=== PATIENT | female | born 1985 | race American Indian/Alaskan Native ===

== ENCOUNTER → 2017-09-22 | Outpatient (CLI) | payer OTHER ==
[~2017-09-22] MED LIST: Bactrim Ds Tab1 EACH PO; HYDR1TAB94 PO; KETO30I IM; NITR100 PO; ONDA4ODT PO; Pepcid20 MG PO; Pyridium200 MG PO; Zofran Odt4 MG SL
[2017-09-22 18:24] LABS: Bilirubin, Urine Neg (Neg); Blood, Urine Neg (Neg); Glucose Qualitative, Urine Neg (Neg); Ketones, Urine 1+ (Neg); Leukocyte Esterase, Urine 1+ (Neg); Nitrite, Urine Neg (Neg); Protein, Urine Neg (Neg); Urobilinogen, Urine NORM (Normal)
[2017-09-22 18:35] LABS: Appearance, Urine Clear (Clear); Color, Urine Pale Yellow (P-Yellow)
[2017-09-22 18:36] LABS: Amorphous Heavy (0-Heavy); Bacteria Few /hpf; Red Blood Cells, Urine Not Seen /hpf (0-2); Squamous Epithelial Cells Not Seen /hpf (Few); White Blood Cells, Urine Not Seen /hpf (0-5)
== END ==
LOC: LAB 16:45 → LAB SHORT 16:45
PROVIDERS: Nurse Practitioner Family
DX: N39.0 Urinary tract infection, site not specified (principal)
CPT/HCPCS: 81001; 87086

== ENCOUNTER 2017-11-30 16:42 | Emergency (ER) | payer OTHER ==
[~2017-11-30] VITALS: Ht 162.6 cm; Wt 83.5 kg
[2017-11-30] MEDS ORDERED: Keflex500 MG PO (17:53)
[2017-11-30] MEDS ORDERED: FLUC150A PO (17:53)
== END 2017-11-30 17:58 | disposition home or self-care (01) ==
LOC: ER 16:42
DX: T63.441A Toxic effect of venom of bees, accidental (unintentional), initial encounter (principal); Z88.0 Allergy status to penicillin; Z88.1 Allergy status to other antibiotic agents; Z87.891 Personal history of nicotine dependence
CPT/HCPCS: 99282

== ENCOUNTER → 2018-06-12 | Outpatient (CLI) | payer OTHER ==
[~2018-06-12] MED LIST changes: +Cheratussin AC118 ML PO; +FLUC150A PO; +Keflex500 MG PO
[2018-06-13 10:20] LABS: Candida species (DNA Probe) Negative (NEGATIVE); G. vaginalis (DNA Probe) Negative (NEGATIVE); T. vaginalis (DNA Probe) Negative (NEGATIVE)
[2018-06-28 15:00] LABS: CHLAMYDIA BY NAA Negative (Negative); GONOCOCCUS BY NAA Negative (Negative); HPV 16 Negative (Negative); HPV 18 Negative (Negative); HPV OTHER HR TYPES Negative (Negative); TRICH VAG BY NAA Negative (Negative)
== END | disposition home or self-care (01) ==
LOC: LAB SHORT 14:25 → LAB 14:25
PROVIDERS: Advanced Practice Midwife
DX: Z01.419 Encounter for gynecological examination (general) (routine) without abnormal findings (principal); N76.0 Acute vaginitis
CPT/HCPCS: 87480; 87491; 87510; 87591; 87624; 87660; 87661; G0123

== ENCOUNTER → 2018-07-03 | Outpatient (CLI) | payer OTHER ==
[2018-07-03 14:41] LABS: Candida species (DNA Probe) Positive (NEGATIVE); G. vaginalis (DNA Probe) Negative (NEGATIVE); T. vaginalis (DNA Probe) Negative (NEGATIVE)
== END | disposition home or self-care (01) ==
LOC: LAB SHORT 10:18 → LAB 10:18
PROVIDERS: Advanced Practice Midwife
DX: N76.0 Acute vaginitis (principal)
CPT/HCPCS: 87480; 87510; 87660

== ENCOUNTER → 2018-07-24 | Outpatient (CLI) | payer OTHER ==
[~2018-07-24] MED LIST changes: +PROM25 PO
[2018-07-27 12:02] LABS: TEST ORDERED: PAP LB
== END | disposition home or self-care (01) ==
LOC: LAB 16:21 → LAB SHORT 16:21
PROVIDERS: Advanced Practice Midwife
DX: Z01.419 Encounter for gynecological examination (general) (routine) without abnormal findings (principal)
CPT/HCPCS: G0123

== ENCOUNTER → 2018-08-15 | Outpatient (CLI) | payer OTHER | END | disposition home or self-care (01) | LOC: LAB SHORT 15:22 → LAB 15:22 | DX: H60.12 Cellulitis of left external ear (principal) | CPT/HCPCS: 87070; 87205 ==

== ENCOUNTER 2018-11-01 07:42 | Day surgery (SDC) | payer OTHER ==
[~2018-11-01] VITALS: Wt 77.6 kg
[~2018-11-01 07:42] MED LIST changes: +PANT20 PO
--- NOTE | 2018-11-01 08:42 | NUR ---
11/01/18 0842 Nino Pickard PATIENT DETERMINED TO BE ASA APPROPRIATE FOR PROPOFOL SEDATION PRIOR TO START OF PROCEDURE BY . 3-LEAD EKG REVIEWED WITH PHYSICIAN PRIOR TO START OF PROCEDURE.PATIENT CONFIRMS NPO STATUS AND AGREES WITH SCHEDULED PROCEDURE.History, Chart, Medications and Allergies reviewed before start of procedure.MONITOR INTACT WITH CONTINUOUS PULSE OXIMETRY AND INTERMITTENT BP.O2 VIA N/C INTACT THROUGHOUT SEDATION/PROCEDURE.HURRICAINE SPRAY TO OROPHARYX.Bite Block Placed
--- NOTE | 2018-11-01 09:53 | NUR ---
Patient up to Ambulate independently. Gait steady. Discharge instructions reviewed with patient. Patient verbalizes understanding. Copy given to patient to take home. Patient States Post-Procedure ride home has been arranged. Discharged via wheelchair to private car for ride home. S.O. PROVIDED TRANSPORTATION. PT TO KEEP APPOINTMENT.
== END 2018-11-01 09:53 | disposition home or self-care (01) ==
LOC: ORSCMMR 07:42 → ORD 08:30 → ORSCMMR 08:30
PROVIDERS: Internal Medicine Gastroenterology
PROC: 0DB68ZX Excision of Stomach, Via Natural or Artificial Opening Endoscopic, Diagnostic (ICD-10-PCS; principal; 2018-11-01 08:30)
PROC: 0DB58ZX Excision of Esophagus, Via Natural or Artificial Opening Endoscopic, Diagnostic (ICD-10-PCS; principal; 2018-11-01 08:30)
PROC: 0DB98ZX Excision of Duodenum, Via Natural or Artificial Opening Endoscopic, Diagnostic (ICD-10-PCS; principal; 2018-11-01 08:30)
DX: R10.13 Epigastric pain (principal); K21.9 Gastro-esophageal reflux disease without esophagitis; Z79.899 Other long term (current) drug therapy; F17.210 Nicotine dependence, cigarettes, uncomplicated
CPT/HCPCS: 88305; 88342; J2704; J7120

== ENCOUNTER 2019-05-29 06:05 | Emergency (ER) | payer OTHER ==
[~2019-05-29] VITALS: Ht 162.6 cm; Wt 74.8 kg
[2019-05-29 07:27] LABS: Influenza A Negative (NEGATIVE); Influenza B Positive (NEGATIVE)
== END 2019-05-29 07:55 | disposition home or self-care (01) ==
LOC: ER 06:05
PROVIDERS: Emergency Medicine
DX: J10.1 Influenza due to other identified influenza virus with other respiratory manifestations (principal); Z87.891 Personal history of nicotine dependence
CPT/HCPCS: 87081; 87430; 87804; 99283

== ENCOUNTER → 2019-08-28 | Outpatient (CLI) | payer OTHER ==
[2019-08-29 09:01] LABS: Candida species (DNA Probe) Negative (NEGATIVE); G. vaginalis (DNA Probe) Positive (NEGATIVE); T. vaginalis (DNA Probe) Negative (NEGATIVE)
[2019-08-31 00:08] LABS: CHLAMYDIA TRACHOMATIS, NAA Negative (Negative); HPV 16 Negative (Negative); HPV 18 Negative (Negative); HPV OTHER HR TYPES Negative (Negative); NEISSERIA GONORRHOEAE, NAA Negative (Negative)
== END | disposition home or self-care (01) ==
LOC: LAB 10:06 → LAB SHORT 10:06
PROVIDERS: Obstetrics & Gynecology
DX: Z01.419 Encounter for gynecological examination (general) (routine) without abnormal findings (principal); N76.0 Acute vaginitis
CPT/HCPCS: 87480; 87491; 87510; 87591; 87624; 87660; G0123

== ENCOUNTER → 2019-09-19 | Outpatient (CLI) | payer OTHER ==
[2019-09-20 10:50] LABS: Candida species (DNA Probe) Negative (NEGATIVE); G. vaginalis (DNA Probe) Negative (NEGATIVE); T. vaginalis (DNA Probe) Negative (NEGATIVE)
== END | disposition home or self-care (01) ==
LOC: LAB SHORT 10:17 → LAB 10:17
PROVIDERS: Obstetrics & Gynecology
DX: N89.8 Other specified noninflammatory disorders of vagina (principal)
CPT/HCPCS: 87480; 87510; 87660

== ENCOUNTER 2020-02-03 21:42 | Emergency (ER) | payer OTHER ==
[~2020-02-03] VITALS: Ht 162.6 cm; Wt 77.1 kg
[2020-02-03] MEDS ORDERED: CYCL10 PO (22:15)
== END 2020-02-03 23:00 | disposition home or self-care (01) ==
LOC: ER 21:42
DX: M62.830 Muscle spasm of back (principal); Z88.0 Allergy status to penicillin; Z88.1 Allergy status to other antibiotic agents; Z79.899 Other long term (current) drug therapy; Z87.891 Personal history of nicotine dependence
CPT/HCPCS: 71046; 96372; 99283-25; A9270; A9270-GY; J1885

== ENCOUNTER 2020-04-03 06:06 | Day surgery (SDC) | payer OTHER ==
[~2020-04-03] VITALS: Ht 162.6 cm; Wt 77.0 kg
[~2020-04-03 06:06] MED LIST changes: +CYCL10 PO
== END 2020-04-03 09:45 | disposition home or self-care (01) ==
LOC: ORSCSDS 06:06
PROVIDERS: Podiatrist Foot & Ankle Surgery
PROC: 0LQW0ZZ Repair Left Foot Tendon, Open Approach (ICD-10-PCS; principal; 2020-04-03 07:30)
DX: M66.872 Spontaneous rupture of other tendons, left ankle and foot (principal); M76.72 Peroneal tendinitis, left leg; Z87.891 Personal history of nicotine dependence
CPT/HCPCS: J0171; J1100; J1200; J2250; J2405; J2704; J3010; J3370; J7120

== ENCOUNTER 2020-10-09 18:26 | Emergency (ER) | payer OTHER ==
[~2020-10-09] VITALS: Ht 162.6 cm; Wt 81.2 kg
[2020-10-09] MEDS ORDERED: Voltaren100 GM (19:04)
[2020-10-09] MEDS ORDERED: PRED20 (19:05)
[2020-10-09] MEDS ORDERED: Cyclobenzaprine5 MG PO (19:49)
== END 2020-10-09 20:15 | disposition home or self-care (01) ==
LOC: ER 18:26
DX: M25.512 Pain in left shoulder (principal); Z88.0 Allergy status to penicillin; Z88.1 Allergy status to other antibiotic agents
CPT/HCPCS: 73030; 99283-25

== ENCOUNTER 2022-04-15 10:20 | Emergency (ER) | payer OTHER ==
[~2022-04-15] VITALS: Ht 162.6 cm; Wt 87.1 kg
[~2022-04-15 10:20] MED LIST changes: +Cyclobenzaprine5 MG PO; +PRED20; +Voltaren100 GM
[2022-04-15] MEDS ORDERED: CODEINE-GUAIFE120 M1 PO (11:09)
== END 2022-04-15 11:08 | disposition home or self-care (01) ==
LOC: ER 10:20
DX: Z20.828 Contact with and (suspected) exposure to other viral communicable diseases (principal); Z88.0 Allergy status to penicillin; Z88.8 Allergy status to other drugs, medicaments and biological substances; Z79.899 Other long term (current) drug therapy; Z79.52 Long term (current) use of systemic steroids
CPT/HCPCS: 99283

== ENCOUNTER 2023-03-28 08:48 | Day surgery (SDC) | payer OTHER ==
[~2023-03-28] VITALS: Ht 162.6 cm; Wt 96.0 kg
[~2023-03-28 08:48] MED LIST changes: +CODEINE-GUAIFE120 M1 PO
[2023-03-28] MEDS ORDERED: CARAFATE1 GM (09:12)
[2023-03-28] MEDS ORDERED: OMEP20ER (09:13)
[2023-03-28 10:28] VITALS: BP 105/71
== END 2023-03-28 10:21 | disposition home or self-care (01) ==
LOC: ORSCSDS 08:48
PROVIDERS: Surgery
PROC: 0DB68ZX Excision of Stomach, Via Natural or Artificial Opening Endoscopic, Diagnostic (ICD-10-PCS; principal; 2023-03-28 10:00)
PROC: 0DB58ZX Excision of Esophagus, Via Natural or Artificial Opening Endoscopic, Diagnostic (ICD-10-PCS; principal; 2023-03-28 10:00)
DX: K21.00 Gastro-esophageal reflux disease with esophagitis, without bleeding (principal); R06.02 Shortness of breath; Z87.891 Personal history of nicotine dependence; Z79.899 Other long term (current) drug therapy
CPT/HCPCS: 88305; 88342; J2250; J2704; J7120

== ENCOUNTER → 2023-04-12 | Outpatient (CLI) | payer OTHER ==
[~2023-04-12] MED LIST changes: +CARAFATE1 GM; +OMEP20ER
[2023-04-17 10:07] LABS: HPV 16 Negative (Negative); HPV 18 Negative (Negative); HPV OTHER HR TYPES Negative (Negative)
== END ==
LOC: LAB SHORT 16:00 → LAB 16:00
PROVIDERS: Family Medicine
DX: Z01.419 Encounter for gynecological examination (general) (routine) without abnormal findings (principal)
CPT/HCPCS: 87624; G0145

== ENCOUNTER 2023-11-14 14:36 | Emergency (ER) | payer OTHER ==
[~2023-11-14] VITALS: Ht 162.6 cm; Wt 93.4 kg
[2023-11-14 15:06] VITALS: BP 153/95
[2023-11-14] MEDS ORDERED: Ketorolac Tromethamine 30mg Vial IM ONE (15:25)
[2023-11-14] MEDS ORDERED: Cyclobenzaprine HCl 10 MG Tab PO ONE (15:25)
[2023-11-14] MEDS ORDERED: Lidocaine 4% 1 Patch TOP ONE (15:25)
[2023-11-14] MEDS ORDERED: Acetaminophen 500 MG Tab PO ONE (15:25)
[2023-11-14] MEDS ORDERED: Voltaren100 GM TOP (16:48)
[2023-11-14] MEDS ORDERED: CYCL10 PO (16:48)
[2023-11-14] MEDS ORDERED: LIDO700A20 TOP (16:48)
== END 2023-11-14 16:58 | disposition home or self-care (01) ==
LOC: ER 14:36
DX: M54.50 Low back pain, unspecified (principal); G89.29 Other chronic pain; K21.9 Gastro-esophageal reflux disease without esophagitis; Z88.0 Allergy status to penicillin; Z88.8 Allergy status to other drugs, medicaments and biological substances; Z79.899 Other long term (current) drug therapy
CPT/HCPCS: 72070; 72100; 96372; 99283-25; A9270; J1885

== ENCOUNTER → 2024-06-21 | Outpatient (CLI) | payer SELFPAY ==
[~2024-06-21] MED LIST changes: +LIDO700A20 TOP; +Voltaren100 GM TOP
[2024-06-22 07:31] LABS: Bacterial Vaginosis PCR Negative (NEGATIVE); Candida Group, PCR NOT DETECTED (NOT DETECT); Candida glabrata-krusei, PCR NOT DETECTED (NOT DETECT)
[2024-06-22 07:56] LABS: Chlamydia Trachomatis Vaginal NOT DETECTED (NOT DETECT); Neisseria Gonorrhoea Vaginal NOT DETECTED (NOT DETECT)
[2024-06-24 15:40] LABS: HIV 1,2 COMBO ANTIGEN/ANTIBODY Negative (Negative)
== END | disposition home or self-care (01) ==
LOC: LAB SHORT 16:50 → LAB 16:50
PROVIDERS: Nurse Practitioner Family
DX: Z72.51 High risk heterosexual behavior (principal)
CPT/HCPCS: 81515; 86592; 87389; 87491; 87591

== ENCOUNTER 2025-03-08 20:50 | Observation (INO) | payer SELFPAY ==
[~2025-03-08] VITALS: Ht 162.6 cm; Wt 96.0 kg
[2025-03-08 21:31] LABS: BASOPHILS ABSOLUTE AUTO 0.04 K/mm3 (0.00-0.23); BASOPHILS PERCENT AUTO 1 % (0-2); EOSINOPHILS ABSOLUTE AUTO 0.24 K/mm3 (0.00-0.68); EOSINOPHILS PERCENT AUTO 3 % (0-6); Hematocrit 38.1 % (33.0-51.0); Hemoglobin 12.4 g/dL (11.5-16.0); IMMATURE GRAN ABSOLUTE AUTO 0.01 K/mm3 (0.00-0.10); IMMATURE GRAN PERCENT AUTO 0 % (0-1); LYMPHOCYTES ABSOLUTE AUTO 3.51 K/mm3 (0.84-5.20); LYMPHOCYTES PERCENT AUTO 48 % (21-46); MONOCYTES ABSOLUTE AUTO 0.55 K/mm3 (0.16-1.47); MONOCYTES PERCENT AUTO 8 % (4-13); Mean Corpuscular HGB Conc 32.5 g/dL (31.5-36.5); Mean Corpuscular Volume 84 fL (80-100); NEUTROPHILS ABSOLUTE AUTO 2.92 K/mm3 (1.96-9.15); NEUTROPHILS PERCENT AUTO 40 % (41-73); NRBC ABSOLUTE 0.00 K/mm3 (0.00-0.02); NRBC Auto 0.0 /100 WBC (0.0-0.2); Platelet Count 273 K/mm3 (150-400); RDW Coefficient Variation 12.5 % (11.7-14.2); RDW Standard Deviation 38.0 fL (35.1-46.3)
[2025-03-08 21:51] LABS: Alanine Aminotransfer (ALT/SGP 45.0 U/L (12-78); Albumin, Blood 3.4 g/dL (3.4-5.0); Albumin/Globulin Ratio 0.8 (0.8-1.8); Anion Gap 8.0 mmol/L (3-11); Aspartate Aminotrans (AST/SGOT 18.0 U/L (12-37); Bilirubin, Total 0.2 mg/dL (0.1-1.0); Blood Urea Nitrogen 18.0 mg/dL (8-24); CO2, Blood 25.0 mmol/L (21-32); Calcium, Blood 8.9 mg/dL (8.5-10.1); Chloride, Blood 111.0 mmol/L (98-108); Creatinine, Blood 0.59 mg/dL (0.40-1.00); Globulin, Blood 4.0 g/dL (2.2-4.0); Glucose, Blood 116.0 mg/dL (70-99); Potassium, Blood 3.8 mmol/L (3.5-5.5); Sodium, Blood 140.0 mmol/L (136-145); Total Protein, Blood 7.4 g/dL (6.4-8.2)
[2025-03-09] VITALS (16 sets, daily range): BP systolic 90–109; BP diastolic 56–79
[2025-03-09 01:58] LABS: Source, Urine Clean Catch
[2025-03-09 02:09] LABS: Bilirubin, Urine Neg (Neg); Glucose Qualitative, Urine Neg (Neg); Ketones, Urine Neg (Neg); Leukocyte Esterase, Urine Neg (Neg); Protein, Urine 1+ (Neg); Specific Gravity, Urine 1.010 (1.003-1.022); Urobilinogen, Urine NORM (Normal)
[2025-03-09 02:12] LABS: Color, Urine Yellow (P-Yellow)
[2025-03-09 02:19] LABS: Red Blood Cells, Urine 0-2 /hpf (0-2); White Blood Cells, Urine Not Seen /hpf (0-5)
[2025-03-09] MEDS ORDERED: Ciprofloxacin 400MG/D5 200ML 200 ML IV ONE (07:00)
[2025-03-09] MEDS ORDERED: Ondansetron HCl 2 MG / ML 2ML Vial IV ONE (07:00)
[2025-03-09] MEDS ORDERED: MetroNIDAZOLE 500MG/NS 100 ml 100 ML IV ONE (07:00)
[2025-03-09] MEDS ORDERED: Ondansetron HCl 2 MG / ML 2ML Vial IV PRN ×2 (07:10→14:05)
[2025-03-09] MEDS ORDERED: HYDROmorphone HCl/Pf 1MG SYR IV PRN ×3 (07:10→14:00)
[2025-03-09] MEDS ORDERED: Rocuronium Bromide 10 MG/ML 5ML Injection IV ONE (12:48)
[2025-03-09] MEDS ORDERED: FentaNYL Citrate 50 MCG/ML 2 ML Injection ONE (12:49)
[2025-03-09] MEDS ORDERED: Midazolam HCl 1MG / ML 2ML Vial ONE ×2 (12:49→13:48)
--- NOTE | 2025-03-09 13:47 | NUR ---
PATIENT TO DAYSURGERY AT THIS TIME.
[2025-03-09] MEDS ORDERED: Bupivacaine 0.5% HCl 5 MG/ML 30MLVIAL ONE (13:53)
--- NOTE | 2025-03-09 13:54 | NUR ---
PT INTO PACU VIA L[facility]EN FROM RM 216 FOR PREOP CARE AT 133O. PLEASANT & COOPERATIVE. PT STATES "I'M SO COLD". JEN WARMER PLACED. SURGICAL PACK COMPLETE. SURGICAL HAT, PAS SLEEVES, BP CUFF IN PLACE. LR AT TKO. AFEBRILE/VSS. VERBALIZES UNDERSTANDIING OF BOTH PREOP & PACU CARE. NOW RESTING QUIETLY. NO COMPLAINTS AT THIS TIME.
[2025-03-09] MEDS ORDERED: FentaNYL Citrate 50 MCG/ML 2 ML Injection IV PRN ×2 (14:00)
[2025-03-09] MEDS ORDERED: Dexamethasone Sodium Phosphate 4 MG/ML 5ML VIAL IV PRN (14:00)
[2025-03-09] MEDS ORDERED: LORazepam 2 MG/ML 1ML Injection IV PRN (14:00)
--- NOTE | 2025-03-09 14:00 | NUR ---
PT TO OR 2 VIA BRANDYRPEPE IN STABLE CONDITION AT 1400.
[2025-03-09] MEDS ORDERED: Ondansetron HCl 2 MG / ML 2ML Vial ONE (14:04)
[2025-03-09] MEDS ORDERED: Dexamethasone Sod Phos 10 MG/ML 1ML VIAL ONE (14:04)
[2025-03-09] MEDS ORDERED: Ketorolac Tromethamine 30mg Vial ONE (14:04)
[2025-03-09] MEDS ORDERED: Sugammadex Sodium 200 MG/2ML SDV (100 MG/ML) ONE (14:23)
[2025-03-09] MEDS ORDERED: Ketorolac Tromethamine 30mg Vial IV PRN (14:45)
[2025-03-09] MEDS ORDERED: HYDROmorphone HCl/Pf 1MG SYR ONE (15:03)
--- NOTE | 2025-03-09 15:50 | NUR ---
POST-OP PATIENT IS DROWSY BUT ABLE TO ANSWER QUESTIONS. LAP SITES X3 WITH STERI STRIPS GAUZE AND TAPE, SMALL DRNG AMOUNT TO BELLY BUTTON AREA. PATIENT ON 3L NC SPO2 @98% WILL TITRATE DOWN . PATIENT REPORTS PAIN WHEN COUGHING AND DEEP BREATHING. VSS, LUNG SOUNDS CLEAR. IVF RUNNING. CALL LIGHT IN REACH.
--- NOTE | 2025-03-09 17:38 | NUR ---
SHIFT SUMMARY PATIENT POD 0 LAP APPY, X3LAP SITES UMBILICUS SITE REINFORCED WITH GAUZE AND TAPE. UP TO THE BATHROOM AND VOIDING, TOLERATING PO INTAKE. MEDICATED PER EMAR FOR PAIN. ABLE TO MAKE NEEDS KNOWN. CALL LIGHT IN REACH.
[2025-03-10 01:10] VITALS: BP 102/74
[2025-03-10 04:15] VITALS: BP 94/59
--- NOTE | 2025-03-10 05:20 | NUR ---
JEWEL SETTER SUMMARY PT IS POD 0 FOR LAP APPY. ABD SITES X3, SOME PREVIOUS DRAINAGE FROM UMBILICAL LAP SITE BUT NO NEW DRAINAGE THROUGH THE NIGHT. PAIN HAS BEEN FAIRLY WELL MANAGED WITH IV DILAUDID 0.5 MG AND TORADOL. PT HAS NOT TAKEN ANY PO NARCOTICS SHE STATES THAT SHE BECOMES VERY NAUSEAS AND VOMITS WHEN SHE HAS USED THEM IN THE PAST. PT ALSO REPORTS FEELING VERY NERVOUS ABOUT HAVING TO TAKE PO NARCOTICS DUE TO A FAMILY HISTORY OF ADDICTION. PT HAS BEEN UP TO THE BATHROOM TO VOID SEVERAL TIMES TONIGHT AND AMBULATES WELL ASIDE FROM THE ABD PAIN. ON 1L O2 VIA NC DUE TO SOME DESATTING WITH PAIN MEDS. OTHERWISE VSS, WCTM.
[2025-03-10 07:23] VITALS: BP 88/57
[2025-03-10] MEDS ORDERED: TRAM50 PO (10:44)
--- NOTE | 2025-03-10 11:19 | NUR ---
DC INSTRUCT REVIEWED. STATED UNDERSTANDING. IV DC'D INTACT. PT WILL DRESS AND DC WHEN RIDE HERE.
[2025-03-10 11:29] VITALS: BP 99/68
== END 2025-03-10 12:00 | disposition home or self-care (01) ==
LOC: ER 20:50 → SURS 20:51 → ER 03-09 07:08 → SURS 03-09 07:08
PROVIDERS: Student in an Organized Health Care Education/Training Program; ADMIT Surgery
PROC: 0DTJ4ZZ Resection of Appendix, Percutaneous Endoscopic Approach (ICD-10-PCS; principal; 2025-03-09 12:30)
DX: K36 Other appendicitis (principal); Z88.0 Allergy status to penicillin; Z88.8 Allergy status to other drugs, medicaments and biological substances; Z88.1 Allergy status to other antibiotic agents
CPT/HCPCS: 74177; 80053; 81001; 83690; 84703; 85025; 88304; 94760; 99285-25; A9270; J0744; J1100; J1171; J1885; J2250; J2405; J2704; J3010; J7120; Q9967